=== PATIENT | male | born 1930 | race Caucasian/White ===

== ENCOUNTER 2016-06-04 11:36 | Observation (INO) | payer MEDICARE ==
[2016-06-04 12:30] LABS: Hematocrit 41 % (42-52); Hemoglobin 13.1 g/dl (14.0-18.0); Mean Corpuscular HGB Conc 32 g/dl (31-36); Mean Corpuscular Hemoglobin 26 pg (27-31); Mean Corpuscular Volume 82 fL (80-94); Mean Platelet Volume 7 um3 (7.4-10.4); Red Blood Count 4.96 10^6/ul (4.0-5.4); Red Cell Distribution Width 19 % (10.5-15); White Blood Count 13.6 10^3/ul (3.5-10.8)
[2016-06-04 12:43] LABS: ALT 11 U/L (7-52); AST 14 U/L (13-39); Albumin 3.9 g/dL (3.2-5.2); Alkaline Phosphatase 88 U/L (34-104); Amylase 18 U/L (29-103); Anion Gap 9 mmol/L (2-11); BUN/Creatinine Ratio 15.6 (8-20); Blood Urea Nitrogen 27 mg/dL (6-24); C Reactive Protein 74.12 mg/L (< 5.00); CO2 Carbon Dioxide 28 mmol/L (22-32); Calcium 10.7 mg/dL (8.6-10.3); Chloride 95 mmol/L (101-111); Creatine Kinase 38 U/L (10-223); EGFR African American 48.6 (>60); EGFR Non-African American 37.8 (>60); Globulin 3.5 g/dL (2-4); Glucose 278 mg/dL (70-100); Lipase < 10 U/L (11.0-82.0); Potassium 3.7 mmol/L (3.5-5.0); Sodium 132 mmol/L (133-145); Total Protein 7.4 g/dL (6.4-8.9)
[2016-06-04 12:45] LABS: Troponin I 0.04 ng/mL (<0.04)
[2016-06-04] MEDS ORDERED: Iodixanol* (CONTRAST) 320 MG/ML 100 ML SDV IV ONE (13:06)
--- NOTE | 2016-06-04 14:34 | RAD ---
CLINICAL HISTORY: Abdominal pain COMPARISON: February 10, 2016 TECHNIQUE: Multiple contiguous axial CT scans were obtained of the abdomen and pelvis after the administration of intravenous contrast. Coronal and sagittal multiplanar reformations are submitted for review. Oral contrast was administered. Delayed images were obtained through the abdomen FINDINGS: LUNG BASES: The lung bases are clear. LIVER: The liver is normal in shape, size, contour, and attenuation. BILE DUCTS: There is no intrahepatic or extrahepatic biliary dilatation. GALLBLADDER: The gallbladder is normal, without pericholecystic inflammatory change. PANCREAS: The pancreas is normal, without mass or ductal dilatation. SPLEEN: Normal in size and appearance. UPPER GI TRACT: Evaluation of the gastrointestinal tract is limited by incomplete gastric distention. There is a moderate-sized paraesophageal hiatal hernia. There is a lipoma of the gastric antrum. SMALL BOWEL AND MESENTERY: The small bowel is normal in contour, course, and caliber. There is no obstruction or dilatation. COLON: There is extensive diverticulosis of the sigmoid colon. There is no pericolonic inflammatory change. ADRENALS: Normal bilaterally. KIDNEYS: There are multiple renal cysts. There is mild to moderate pelvocaliectasis with a 0.6 cm calculus of the proximal third of the left ureter. There is stranding of the perinephric fat. BLADDER: The bladder is smooth in contour. PELVIC ORGANS: The prostate gland is normal. The seminal vesicles are symmetric. AORTA: There is calcific atherosclerotic disease of the abdominal aorta and its branches, without aneurysmal dilatation IVC: Unremarkable LYMPH NODES: There is no lymphadenopathy by size criteria. ABDOMINAL WALL: There is a fat-containing umbilical hernia. BONES AND SOFT TISSUES: Degenerative changes are noted OTHER: None IMPRESSION: 1. 0.6 CM CALCULUS OF THE PROXIMAL LEFT URETER WITH MILD TO MODERATE LEFT-SIDED HYDRONEPHROSIS. 2. DIVERTICULOSIS. 3. HIATAL HERNIA. 4. ATHEROSCLEROSIS
[2016-06-04] MEDS ORDERED: Morphine INJ* 4 MG/ML 1 ML CARPUJECT IM ONE (14:37)
[2016-06-04] MEDS ORDERED: Ondansetron INJ* 2 MG/ML VIAL IV ONE (14:37)
[2016-06-04] MEDS ORDERED: NS 0.9% 1000 ML* 1,000 ML IV ONE (15:12)
[2016-06-04] MEDS ORDERED: Dextrose 50% Syringe 50 ML* 25 GM/50 ML SYRINGE IV PUSH PRN (16:18)
[2016-06-04] MEDS ORDERED: Acetaminophen TAB* 325 MG PO PRN (16:18)
[2016-06-04] MEDS ORDERED: Ondansetron INJ* 2 MG/ML VIAL IV PRN (16:18)
[2016-06-04] MEDS ORDERED: cefTRIAXone VIAL(*) 1,000 MG in NS 0.9% 50 ML* 50 ML IVPB SCH (16:19)
[2016-06-04] MEDS ORDERED: NS 0.9% 1000 ML* 1,000 ML IV SCH ×2 (16:30→17:15)
[2016-06-04] MEDS ORDERED: Morphine INJ* 2 MG/ML 1 ML CARPUJECT IV PRN (16:39)
[2016-06-04] MEDS ORDERED: cefTRIAXone(*) 1 GM ADVAN/BAG ONE (17:06)
[2016-06-04] MEDS ORDERED: Buffered Lidocaine 1% SYR 3ML* 3 ML/SYR SYRINGE INTRADERM ONE (17:07)
[2016-06-04] MEDS ORDERED: Famotidine IV* 10 MG/ML 2 ML (20 mg) IV ONE (17:07)
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
[2016-06-04 17:44] LABS: Urine Bacteria Absent (Absent); Urine Bilirubin Negative (Negative); Urine Glucose 2+(150 mg/dL) (Negative); Urine Nitrite Negative (Negative)
[2016-06-04] MEDS ORDERED: Bupivacaine 0.25% SDV* 30 ML ONE (18:33)
[2016-06-04] MEDS ORDERED: Iohexol 180 (CONTRAST) 10 ML SDV IV ONE (20:20)
--- NOTE | 2016-06-04 20:39 | HP ---
HISTORY AND PHYSICAL: DATE OF ADMISSION: 06/04/16 PRIMARY CARE PROVIDER: Dr. Mckinnon. ATTENDING PHYSICIAN: Dr. Warren Stevenson *(report being dictated by Jose Luis Cantor NP) CHIEF COMPLAINT: Left-sided abdominal pain. HISTORY OF PRESENT ILLNESS: Mr. Guardado is an 86-year-old male patient who has a history of aortic valve disease, status post replacement with a tissue valve, hypertension, tachybrady syndrome, status post pacemaker, peripheral vascular disease, diabetes. He comes into the ER today stating that over the weekend, he developed left-sided abdominal pain mostly on the flank that radiated into the front. It started on Saturday. He noticed throughout the weekend, he was feeling nauseated. Any time he ate, he felt like he was going to be sick and at times, he felt like eating made the pain worse. He denied having any fevers or chills. He denied having any chest pain or any shortness of breath. He denied having any diarrhea or blood per the rectum or any tarry stool. He was saying that he was having difficulty with urination. He was having hard time going, but it did not hurt. He was concerned and his daughter was concerned and brought him to the hospital today to be evaluated. There has been no recent changes in his medications and again, he does state that he goes up a flight of stairs couple of times a day, and he has no chest pain or shortness of breath from this. He came into the ER today, he was evaluated. He was ultimately found to be in acute renal failure. He was found to have a stone on the left side and there was a concern, so the hospitalist service was asked to evaluate for admission. PAST MEDICAL HISTORY: Significant for: 1. Aortic valve disease. 2. Hypertension. 3. Tachybrady syndrome. 4. PVD. 5. Diabetes. PAST SURGICAL HISTORY: 1. He has had an aortic valve replacement. 2. Pacemaker replacement. HOME MEDICATIONS: Include: 1. Pletal 100 mg p.o. b.i.d. 2. Toprol XL 25 mg daily. 3. Diltiazem 120 mg daily. 4. Aspirin 1 tablet daily. 5. Vitamin C 1 tablet daily. 6. Glucophage 1 tablet p.o. b.i.d. 7. Zocor 1 tablet p.o. at bedtime. 8. Prilosec 1 capsule p.o. daily. 9. Magnesium oxide 2 tablets p.o. daily. 10. Proscar 1 tablet daily. 11. Lantus 38 units subcu daily. ALLERGIES TO MEDICATIONS: Include no known drug allergies. FAMILY HISTORY: His mother of old age. Father had a history of COPD. SOCIAL HISTORY: He is a former smoker about a pack to 2 packs a day. He does not drink alcohol. He lives with his children. Surrogate decision maker is his daughter. REVIEW OF SYSTEMS: There is no documented fever. He denied any significant weight change. There was no double vision. He denies any ear discharge. No rhinorrhea. No sore throat. No thyroid enlargement. He again denies any chest pain recently. Denies having any shortness of breath. There is abdominal pain per my HPI. There was nausea including an episode of vomiting. No dysuria. No frequency. There is no loss of consciousness. No pruritus. No skin ulcerations. Review of 14 systems was completed, all others negative. PHYSICAL EXAMINATION GENERAL: At this time, Mr. Guardado is an 86-year-old male patient. He is sitting in the ER stretcher. He does not appear to be in any acute distress. VITAL SIGNS: Blood pressure of 147/70, pulse of 83, respirations 18, O2 sat 97% , temperature 97.6. HEENT: Head is atraumatic and normocephalic. Eyes: EOMs are intact. Sclerae anicteric and not pale. Throat: Oral mucosa appears to be moist. No oropharyngeal erythema. NECK: Supple. LUNGS: Clear to auscultation bilaterally. HEART: SS1 and S2. Regular rate and rhythm. There were no rubs or gallops. He did have a grade 2 to 3 aortic murmur. ABDOMEN: Soft, flat, and nontender. BACK: No CVA tenderness. EXTREMITIES: Pulses were 2+ throughout. He is able to move all 4 extremities with 5/5 strength. SKIN: Grossly intact. NEUROLOGIC: He is awake. He is alert. He is oriented x3. Tongue midline. Cream Gatherer were equal. No gross focal deficits. LABORATORY DATA: Labs today revealed a WBC of 13.6, RBC of 4.96, hemoglobin of 13.1, hematocrit of 41, platelet count of 257. Sodium was 132, potassium of 3.7, chloride of 95, bicarb of 28, BUN 27, creatinine of 1.73, baseline is 1. The glucose was 278, lactic 1.9, calcium 10.7, total bili 0.9, AST 14, ALT 11, alk phos 88, CK 38, troponin was 0.04. CRP of 74.12, albumin of 3.9. He had an EKG obtained today which did show a normal sinus rhythm. He did have PACs with a rate of 82 at [facility]. In addition of this, he did have inversion in leads II, III, and actually they are positive in aVF. He had previous EKG from today as well, which appeared to be similar. He had abdominal pelvis CT scan obtained today, which showed 0.6 cm calculus of the proximal left ureter with [id number] left-sided hydronephrosis, diverticulosis, hiatal hernia, atherosclerosis. Old medical records were reviewed. ASSESSMENT AND PLAN: Mr. Guardado is an 86-year-old male patient coming into the ER today with complaints of left-sided abdominal pain. On evaluation today , he was found to have kidney stone. He will be admitted under inpatient status for: 1. Left-sided nephrolithiasis with associated hydronephrosis and acute renal failure. At this point, I did touch base with Dr. Kelley, hospitalist service was asked to evaluate. The patient's RCRI score, he scores one for diabetes requiring treatment with insulin. In addition to this, given the other point, so, he has a two risk factors that put him at 2.4% risk of cardiac , non fatal myocardial infarction and and non fatal cardiac arrest and 3.6 % risk for pulmonary edema, ventricular fibrillation, and primary cardiac arrest and complete heart block, although he does have a pacemaker; however, he does walk up the stairs with no shortness of breath or chest pain. He does this about twice a day with his job. In addition to this, he does appear to be fairly active. So, I think, the risk of not performing the surgery certainly outweigh the risk of surgery. So, I think we should proceed. His EKGs appear to be stable. I do note that his troponin is 0.04, but again he is not having any active cardiac symptoms. I am repeating this and will continue to follow. 2. Aortic valve disease. He can follow with Dr. Mauser. 3. Hypertension. Continue meds as prescribed. 4. Tachybrady syndrome. He has a pacemaker in place. 5. Diabetes. We will go ahead and put him on a lispro sliding scale and continue Lantus. 6. Peripheral vascular disease. Continue his aspirin and Pletal. 7. DVT prophylaxis, he will be placed on heparin subcu. 8. Code status. Full code. 9. Fluid, electrolyte, nutrition. He is n.p.o. and has normal saline at 100 an hour. TIME SPENT: Time spent on this admission was approximately 60 minutes, greater than half the time was spent [id number] with the patient obtaining my history and physical; other half the time was spent going over the plan of care with the patient and implementing the plan of care. I did discuss the plan of care with my attending; Dr. Stevenson; he is in agreement. JOSE LUIS CANTOR NP CC: Dr. Mckinnon; Dr. Kelley* [id number]/[facility] #: [id number] [facility] CENTERBarbara
[2016-06-04] MEDS ORDERED: Midazolam* 1 MG/ML 2 ML VIAL (2 MG) ONE (20:40)
[2016-06-04] MEDS ORDERED: fentaNYL* 50 MCG/ML 2 ML VIAL (100 MCG VIAL) ONE ×2 (20:41→21:09)
[2016-06-04] MEDS ORDERED: Lidocaine 2% PF * 5 ML VIAL ONE (20:56)
[2016-06-04] MEDS ORDERED: Ondansetron INJ* 2 MG/ML VIAL ONE (20:56)
[2016-06-04] MEDS ORDERED: Ketorolac INJ* 30 MG/ML 1 ML VIAL ONE (20:56)
[2016-06-04] MEDS ORDERED: Dexamethasone IV* 4 MG/ML 1 ML (4 MG) ONE (20:56)
[2016-06-04] MEDS ORDERED: Propofol* 10 MG/ML 20 ML BTL IV PUSH ONE (20:56)
[2016-06-04] MEDS ORDERED: Atorvastatin* 10 MG TAB PO SCH (21:00)
[2016-06-04] MEDS ORDERED: Phenylephrine IV* 40 MCG/ML 10 ML SYRINGE ONE (21:04)
[2016-06-04] MEDS ORDERED: oxyCODONE/Acetamin 5/325 MG* TAB PO PRN (21:38)
[2016-06-04] MEDS ORDERED: HYDROmorphone INJ* 1 MG/ML CARPUJECT SYRINGE IV PRN (21:38)
[2016-06-04] MEDS ORDERED: DiMENhydriNATE IV* 50 MG/ML VIAL IV PUSH PRN (21:38)
--- NOTE | 2016-06-04 21:47 | RAD ---
INDICATION: Left retrograde pyelogram COMPARISON: CT June 04, 2016 FINDINGS: 20 seconds of fluoroscopy were provided for the urology department. Fluoroscopic spot imaging of the abdomen were obtained for operative control and show left ureteral stent placement . CPT II Codes: 6045F (fluoro time doc)
[2016-06-04] MEDS: Insulin LISPRO* 1 UNITS UNIT SUBCUT SCH (22:29)
[2016-06-04] MEDS: Cilostazol TAB* 100 MG PO SCH (23:13)
[2016-06-04] MEDS: Heparin VIAL(*) 5000 UNITS/ML VIAL (FIVE THOUSAND) SUBCUT SCH (23:14)
[2016-06-04] MEDS: NS 0.9% 1000 ML* 1,000 ML IV SCH (23:26)
[2016-06-05] MEDS: Heparin VIAL(*) 5000 UNITS/ML VIAL (FIVE THOUSAND) SUBCUT SCH (05:34)
[2016-06-05 05:51] LABS: Hematocrit 34 % (42-52); Mean Corpuscular HGB Conc 33 g/dl (31-36); Mean Corpuscular Hemoglobin 27 pg (27-31); Mean Corpuscular Volume 82 fL (80-94); Mean Platelet Volume 7 um3 (7.4-10.4); Red Blood Count 4.08 10^6/ul (4.0-5.4); Red Cell Distribution Width 19 % (10.5-15); White Blood Count 9.9 10^3/ul (3.5-10.8)
[2016-06-05 06:07] LABS: BUN/Creatinine Ratio 20.8 (8-20); Calcium 9.3 mg/dL (8.6-10.3); EGFR African American 70.8 (>60); Potassium 4.2 mmol/L (3.5-5.0)
[2016-06-05] MEDS ORDERED: Omeprazole CAP* 20 MG PO SCH (07:30)
[2016-06-05] MEDS: Insulin LISPRO* 1 UNITS UNIT SUBCUT SCH ×2 (08:10→12:43)
[2016-06-05] MEDS: Cilostazol TAB* 100 MG PO SCH (08:11)
[2016-06-05] MEDS: NS 0.9% 1000 ML* 1,000 ML IV SCH (08:12)
--- NOTE | 2016-06-05 08:21 | RAD ---
HISTORY: Kidney stone COMPARISONS: CT dated June 04, 2016 VIEWS: Frontal views of the abdomen. FINDINGS: BOWEL: There is a nonspecific bowel gas pattern, with nondilated small bowel gas noted. Oral contrast is noted within the colon. CALCULI: A left ureteral stent is noted. There is a 0.4 cm calculus that appears to closely the correct location of the left renal pelvis. There is a 0.3 cm calculus of the lower pole of left renal parenchymal shadow. BONES AND SOFT TISSUES: Degenerative changes are noted of the spine OTHER FINDINGS: The lung bases are clear. There is no subphrenic gas. IMPRESSION: LEFT-SIDED URETERAL STENT WITH LEFT NEPHROLITHIASIS
[2016-06-05] MEDS ORDERED: Insulin GLARGINE(*) 1 UNITS UNIT SUBCUT SCH (09:00)
[2016-06-05] MEDS ORDERED: Diltiazem CD CAP* 120 MG PO SCH (09:00)
[2016-06-05] MEDS ORDERED: Metoprolol Succinate XL TAB* 25 MG PO SCH (09:00)
[2016-06-05] MEDS ORDERED: Finasteride TAB* 5 MG PO SCH (09:00)
[2016-06-05] MEDS ORDERED: Aspirin Low Dose CHEW TAB* 81 MG PO SCH (09:00)
--- NOTE | 2016-06-05 10:34 | OP ---
DATE OF OPERATION: 06/04/16 - ROOM #446 DATE OF : 34 SURGEON: Dr. Kelley. ANESTHESIOLOGIST: Dr. Malina Wade ANESTHESIA: General. PRE-OP DIAGNOSES: 1. Proximal left ureteral calculus (6 mm). 2. Left hydronephrosis due to above. 3. Decreased renal function due to above. POST-OP DIAGNOSIS: 1. Proximal left ureteral calculus (6 mm). 2. Left hydronephrosis due to above. 3. Decreased renal function due to above. OPERATIVE PROCEDURES: 1. Cystoscopy. 2. Left ureteroscopy and basketing of proximal left ureteral calculus. 3. Placement of left ureteral stent. INDICATION FOR PROCEDURE: Mr. Guardado is an 86-year-old white male who presented to the emergency room today with a 2-days' history of symptoms of left renal colic. CT of the abdomen and pelvis showed a 6 mm calculus in the proximal left ureter associated with left hydronephrosis. His serum creatinine was 1.7. Because of the above history and finding, the patient is taken to the operating room for the above procedure. PATHOLOGY AT CYSTOSCOPY: The penile and bulbar urethra looked normal. The prostatic urethra measured 2.5 cm is in length and there was only mild degree of prostate enlargement and obstruction. Examination of the bladder showed normal mucosa. There were no suspicious bladder lesions seen. No calculi or diverticula were noted. The ureteral orifices looked normal. At fluoroscopy, there was residual contrast in the Lt collecting system from the CT that was done earlier today. The contrast was held at the level of L4 where a radiopaque calculus was noted. Moderate degree of hydronephrosis was noted. Upon left ureteroscopy, the calculus was identified. It had a pale yellowish appearance, probably representing calcium phosphate stone. The stone was friable and upon basketing it, it broke into fragments. I was not sure if any of the fragments had migrated up into the collecting system, but it could not be visualized. DESCRIPTION OF PROCEDURE: After successful general anesthesia, the patient was placed in the lithotomy position and was prepped and draped for a cystoscopy. Cystoscopy was then performed. The bladder was inspected and above findings were noted. A flexible-tip guidewire was then introduced into the left ureter and positioned in the area of the renal pelvis. A size 6.5 semirigid tapered ureteroscope was then introduced under direct vision inside the bladder. A flexible-tip basket was passed through the port of the ureteroscope and its flexible tip was introduced into the left orifice. That allowed an atraumatic introduction of the ureteroscope inside the ureter. The scope was introduced without difficulty all the way until the level of L4 where the calculus was identified. The basket was then deployed beyond the stone and the stone was positioned inside the basket. The plan was to break the stone with a laser. When the basket was partially closed, the stone broke into fragments. Some of the fragments were pulled all the way outside the ureter without difficulty. I was not positive if another fragment might not have migrated into the renal pelvis. Ureteroscopy was again performed and the whole ureter all the way to the ureteropelvic junction was inspected and no stone fragments were noted. The cystoscope was then introduced over the guidewire. A size 6-Nigerian stent was then placed with the proximal end coiling in the renal pelvis and the distal end coiling inside the bladder. A 16-Nigerian Garnett catheter was placed. The patient tolerated the procedure well and left the operating room in good condition. The plan is to obtain a KUB in the morning to check for any residual stone fragments. CC: Dr. Rolando Maradiaga * [id number]/[facility] #: [id number] MARRY
--- NOTE | 2016-06-05 14:36 | DS ---
DISCHARGE SUMMARY: DATE OF ADMISSION: 06/04/16 DATE OF DISCHARGE: 06/05/16 PRIMARY CARE PROVIDER: Dr. Mckinnon. CONSULTING UROLOGIST: Dr. Kelley. DISCHARGING PROVIDER: SREE Portillo. SUPERVISING PHYSICIAN: Dasia Fuentes MD.*(DICTATED BY SREE PORTILLO) PRIMARY DISCHARGE DIAGNOSES: 1. Infected obstructing left ureteral stone with associated hydronephrosis status post retrograde pyelogram with left ureteral stent placement. 2. Acute kidney injury. SECONDARY DISCHARGE DIAGNOSES: 1. Insulin dependent diabetes. 2. Aortic valve replacement. 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 4. Hypertension. 5. Peripheral vascular disease. HOSPITAL IMAGIN. CT of the abdomen and pelvis, 06/04/16, shows a 6-mm calculus at the proximal left ureter with mild to moderate left-sided hydronephrosis with diverticulosis, hiatal hernia and evidence of atherosclerosis. 2. KUB, 06/05/16, shows a left-sided ureteral stent in place. No other acute pathology. HOSPITAL COURSE: This is an 86-year-old gentleman with history of insulin dependent diabetes who presented to the emergency department with complaints of left flank pain. The patient's symptoms had been present and getting progressively worse for approximately 3 days prior to admission. He reported associated nausea with his abdominal pain. He had very poor appetite and some associated difficulty urinating prior to admission. Initial lab showed a moderate leukocytosis with white blood cell count of 13,600. He also had an elevated BUN of 27 with a creatinine of 1.73 with a baseline creatinine closer to 1, initial troponin also mildly elevated at 0.04 but without complaints of associated chest pain. CRP was moderately elevated at 74. Urinalysis showed very concentrated urine, positive for blood, leuk esterase and glucose, as well as white blood cells. CT scan of the abdomen and pelvis demonstrated a 6 mm proximal ureteral stone with associated hydronephrosis. Urologist, Dr. Kelley was consulted who completed a retrograde pyelogram with left ureteral stent placement on the evening of 06/04/16. The patient reported relief from his abdominal pain after placement of the stent. He was afebrile throughout his hospital stay. No further nausea or vomiting. In regards to his renal function, BUN improved slightly and creatinine dropped to 1.25 at the time of discharge. This may be due to mild sepsis and hypovolemia, unlikely to be due to obstruction. The patient has been treated for a right prepatellar bursitis with Keflex. He has had approximately 1 week of antibiotics and reports improvement and associated swelling. He states that his pain in his knee has been improving as well. DISPOSITION: The patient is being discharged to home. Recommend Cipro for the next 7 days in addition to completing his course of Keflex as previously prescribed. He requires followup with Dr. Kelley for possible lithotripsy and eventual left stent removal. I would also recommend followup with patient' s primary care provider regarding this hospitalization within the next week or so. SREE PORTILLO CC: Dr. Mckinnon: Dr. Kelley* [id number]/CPS #: [id number] MTDD
[2016-06-05 15:39] VITALS: BP 132/54
== END 2016-06-05 14:55 | disposition home or self-care (01) ==
LOC: ED 11:36 → SDS 16:55 → MEDTELE 22:30
PROVIDERS: ADMIT Urology; ATTEND Internal Medicine
PROC: 0T778DZ Dilation of Left Ureter with Intraluminal Device, Via Natural or Artificial Opening Endoscopic (ICD-10-PCS; 2016-06-04)
PROC: 0TC78ZZ Extirpation of Matter from Left Ureter, Via Natural or Artificial Opening Endoscopic (ICD-10-PCS; principal; 2016-06-04 18:00)
DX: N13.6 Pyonephrosis (principal); N17.9 Acute kidney failure, unspecified; E11.9 Type 2 diabetes mellitus without complications; Z79.4 Long term (current) use of insulin; K57.30 Diverticulosis of large intestine without perforation or abscess without bleeding; Z95.0 Presence of cardiac pacemaker; I49.5 Sick sinus syndrome; I10 Essential (primary) hypertension; R94.31 Abnormal electrocardiogram [ECG] [EKG]; K44.9 Diaphragmatic hernia without obstruction or gangrene; I73.9 Peripheral vascular disease, unspecified; Z95.2 Presence of prosthetic heart valve; Z87.891 Personal history of nicotine dependence; Z79.82 Long term (current) use of aspirin; Z79.899 Other long term (current) drug therapy
CPT/HCPCS: 36415; 74000; 74177; 74420; 80048; 80053; 81003; 81015; 82150; 82550; 82570; 83605; 83690; 83880; 84300; 84484; 85025; 86140; 87040; 87086; 93005; 94760; 96365; 96372; 96375; 99284; A9270-GY; C1876; G0378; J0696; J1100; J1644; J1885; J2250; J2270; J2405; J2704; J3010; Q9967

== ENCOUNTER → 2016-06-25 12:13 | Day surgery (SDC) | payer MEDICARE ==
--- NOTE | 2016-06-11 09:17 | HP ---
HISTORY AND PHYSICAL: DATE OF PLANNED ADMISSION AND SURGERY: 06/25/16 HISTORY OF PRESENT ILLNESS: Mr. Guardado is an 86-year-old white male who is admitted with a left renal calculus, status post placement left ureteral stent for shock wave lithotripsy of the left renal calculus and cystoscopy with removal of the left ureteral stent. Please refer to the history and physical on this patient on his admission for the same condition on 06/04/16. Mr. Guardado was admitted about 3 weeks prior to this admission with symptoms of left renal colic and was found to have a 6-mm calculus in the proximal left ureter. His serum creatinine was elevated at 1.7. He was taken urgently to the operating room where he underwent a left ureteroscopy. The calculus was visualized and while it was being engaged with the basket, it crumbled. I was not sure whether the larger fragment migrated into his renal pelvis. It could not be visualized on fluoroscopy. The patient had a stent placed. He did very well postoperatively and his renal function went back to normal. Postoperative KUB showed the left stent in good position and a 6-mm radiopaque calculus within the loop of the stent. Because of that finding, the patient is admitted for the above procedure. PAST MEDICAL HISTORY AND SYSTEM REVIEW: Detailed on his recent admission. The patient is an insulin-dependent diabetic. He had an aortic valve replacement. He has a tachy-alicia syndrome and had the pacemaker placed in November 2014 with good control of his symptoms. He has peripheral vascular disease. MEDICATIONS: The patient has been maintained on one baby aspirin per day and that was discontinued 1 week prior to this planned admission. There has not been any change in the list of his medications. ALLERGIES: He has no allergies to medications. PHYSICAL EXAMINATION GENERAL: He is an elderly white male, who looks good for his age. VITAL SIGNS: Blood pressure 130/80, pulse of 70. LUNGS: Clear. HEART: Regular and rhythmic. No murmurs. ABDOMEN: Soft without any masses. No CVA tenderness. IMPRESSION: 1. 6-mm calculus in the left renal pelvis with status post placement of left ureteral stent. 2. Pacemaker. 3. Insulin-dependent diabetic, on treatment. 4. Status post aortic valve replacement. PLAN: For shock wave lithotripsy of the left renal calculus followed by cystoscopy and removal of the left ureteral stent. I discussed the above plans with the patient. All his questions were answered. CC: Dr. Satya Mckinnon* [id number]/CPS #: [id number] MTDD
[~2016-06-25 12:13] MED LIST: Buffered Lidocaine 1% SYRIN* 3 ML/SYR SYRINGE INTRADERM ONE; Lidocaine 2% PF* 5 ML VIAL ONE; Propofol* 10 MG/ML 20 ML BTL IV PUSH ONE; Sodium Citrate/Citric Acid* 15 ML UDC ONE; Sodium Citrate/Citric Acid* 15 ML UDC PO ONE; ceFAZolin 2 GM PREMIX(*) 2 GM/50 ML BAG IVPB ONE; cefTRIAXone(*) 2 GM ADDV.VIAL IVPB ONE
--- NOTE | 2016-06-25 12:57 | RAD ---
Indication: Preshock wave lithotripsy. Comparison: June 08, 2016 Technique: Supine abdomen Report: LEFT ureteral stent in place. No significant change in 5 mm stone at level of the lower pole of the LEFT kidney. No RIGHT urolithiasis evident with bowel contents partially obscuring the renal fossa. Hyperdense pharmaceutical pills visualized at the stomach, small bowel, and colon. Multiple pelvic phleboliths. Unremarkable soft tissue contours. Median sternotomy wires, mediastinal vascular clips, prosthetic aortic valve, RIGHT atrial and RIGHT ventricular level pacemaker leads. Clear lung bases. IMPRESSION: No significant change in LEFT lower pole renal stone.
[2016-06-25 15:03] VITALS: BP 166/75
--- NOTE | 2016-06-26 08:58 | OP ---
DATE OF OPERATION: 06/25/16 [facility] DATE OF : 34 SURGEON: Kalin Kelley MD ANESTHESIOLOGIST: Carlos Hardin DO ANESTHESIA: General. PRE-OP DIAGNOSES: 1. Left renal calculus. 2. Status post placement left ureteral stent. POST-OP DIAGNOSES: 1. Left renal calculus. 2. Status post placement left ureteral stent. OPERATIVE PROCEDURE: 1. Shock wave lithotripsy of left renal calculus. 2. Cystoscopy and removal of left ureteral stent. INDICATIONS: Mr. Guardado is an 86-year-old white male who presented 3 weeks ago with symptoms of left renal colic and then elevated serum creatinine of 1.7. He was noted on CT to have an obstructing 6-mm calculus in the proximal left ureter. He had urgent placement of left ureteral stent. Followup KUBs showed the stone to have migrated into the renal pelvis. The patient now is brought in for definitive treatment of the stone. PATHOLOGY: Preoperative KUB showed that the stone had dropped into a lower pole calyx of the left kidney. The left stent is in good position. At cystoscopy, there was moderate prostate enlargement and obstruction. The stent was seen coming from the left orifice. There was expected hyperemia of the bladder wall from the stent. DESCRIPTION OF PROCEDURE: After successful general anesthesia, the patient was placed on the shock wave lithotripsy table in the supine position. The left renal calculus was visualized in both the PA and oblique x-ray views and the position of the patient and of the generator were adjusted to have the stone in the focus of the shock waves. A total of 2000 shocks were then delivered at a rate of 90 shocks per minute. A 3- minute break was taken after the initial 300 shocks to decrease the risk of renal injury. The proper positioning of the generator and the fragmentation of the stone were monitored periodically. At the completion of the treatment, the stone seemed to have gotten travelift operator in density. The patient was then prepped for cystoscopy. A straight catheterization was done to empty his bladder. Flexible cystoscopy was then performed and the stent was removed intact. The patient tolerated the procedure well and left the operating room in good condition. The plan is to follow the patient with renal ultrasound in 2 weeks, earlier if he becomes symptomatic. CC: Dr. Satya Mckinnon * [id number]/[facility] #: [id number] [facility] HOSPITALBarbara
== END | disposition home or self-care (01) ==
LOC: OR 12:13
PROVIDERS: ATTEND Urology
DX: N20.0 Calculus of kidney (principal); Z46.6 Encounter for fitting and adjustment of urinary device; E11.9 Type 2 diabetes mellitus without complications; Z79.4 Long term (current) use of insulin; Z95.0 Presence of cardiac pacemaker
CPT/HCPCS: 74000; A9270-GY; J0690; J0696; J2704

== ENCOUNTER → 2019-03-20 08:22 | Day surgery (SDC) | payer MEDICARE ==
[~2019-03-20 08:22] MED LIST changes: -Buffered Lidocaine 1% SYRIN* 3 ML/SYR SYRINGE INTRADERM ONE; +Clopidogrel TAB* 300 MG ONE; +Heparin 2 UNITS/ML IVPREMIX* 1,000 ML IV ONE; +Heparin 2 UNITS/ML IVPREMIX* 2,000 ML IV ONE; +Heparin(*) 1000 UNIT/ML 10 ML VIAL CATH LAB IV ONE; +Iodixanol 320 (CONTRAST) 100 ML SDV ONE; +Iohexol 350 (CONTRAST) 200 ML MDV IV ONE; +LORazepam TAB(*) 1 MG ONE; +Lidocaine 1% INJ* 10 MG/ML 30 ML SDV ONE; -Lidocaine 2% PF* 5 ML VIAL ONE; +Metoprolol Tartrate IV* 1 MG/ML 5 ML VIAL ONE; +Midazolam* 1 MG/ML 5 ML VIAL (5 MG) ONE; -Propofol* 10 MG/ML 20 ML BTL IV PUSH ONE; -Sodium Citrate/Citric Acid* 15 ML UDC ONE; -Sodium Citrate/Citric Acid* 15 ML UDC PO ONE; -ceFAZolin 2 GM PREMIX(*) 2 GM/50 ML BAG IVPB ONE; -cefTRIAXone(*) 2 GM ADDV.VIAL IVPB ONE; +fentaNYL* 50 MCG/ML 2 ML VIAL (100 MCG VIAL) ONE; +hydrALAZINE IV* 20 MG/ML VIAL ONE
[2019-03-20 10:00] LABS: Activated Partial Thrombo Time 38.4 seconds (26.0-38.0); INR 1.07 (0.82-1.09)
[2019-03-20 10:08] LABS: BUN/Creatinine Ratio 14.3 (8-20); Calcium 11.2 mg/dL (8.6-10.3); EGFR African American 80.8 (>60); EGFR Non-African American 66.8 (>60); Potassium 4.1 mmol/L (3.5-5.0)
[2019-03-20 16:09] VITALS: BP 137/71
--- NOTE | 2019-03-20 16:34 | PN ---
Progress Note - Progress Note Date of Service: 03/20/19 SOAP: Subjective: No pain complaints at pelvis, left groin or either leg. Eaten lunch. Wants to go home. Objective: Selected Entries 03/20/19 16:06 Heart Rate 63 Respiratory 20 Rate Blood Pressure 137/71 (mmHg) Blood Pressure 88 Mean O2 Sat by Pulse 97 Oximetry NAD, AAO X 3 Left groin is soft and nontender. Dressing is C/D/I 2+ pulses palpable at B/L ACTIVITY THERAPIST No abdominopelvic pain Assessment: 89 YOM status post pelvic and BLE arteriography, balloon angioplasty of the bilateral iliac arteries and right ACTIVITY THERAPIST followed by successful percutaneous closure of the left common femoral arteriotomy with an AngioSeal device. Plan: 1. Plavix 75 mg PO daily x 1 month. 2. DC to home. 3. Routine IR follow up will include RN call 03/23/19 and SCOUT & OV in 1 month.
== END | disposition home or self-care (01) ==
LOC: CHICATH 08:22
PROVIDERS: ATTEND Radiology Diagnostic Radiology
DX: I70.223 Atherosclerosis of native arteries of extremities with rest pain, bilateral legs (principal); I10 Essential (primary) hypertension; I49.5 Sick sinus syndrome; Z95.2 Presence of prosthetic heart valve; E11.9 Type 2 diabetes mellitus without complications; Z79.4 Long term (current) use of insulin; Z79.84 Long term (current) use of oral hypoglycemic drugs; Z87.891 Personal history of nicotine dependence; R06.00 Dyspnea, unspecified; R94.31 Abnormal electrocardiogram [ECG] [EKG]; R06.02 Shortness of breath; Z87.442 Personal history of urinary calculi
CPT/HCPCS: 36415; 75716; 75736; 76937; 80048; 85347; 85610; 85730; 99156; 99157; A9270-GY; C1725; C1769; C1887; C1894; J0360; J1644; J2250; J3010; J3490